=== PATIENT | female | born 1975 | race Caucasian/White ===

== ENCOUNTER → 2020-12-14 08:37 | Outpatient (CLI) | payer OTHER, MEDICAID, SELFPAY ==
[2020-12-14 09:13] LABS: Hematocrit 39.6 % (36-46); Hemoglobin 13.2 g/dL (12.0-16.0); Mean Corpuscular HGB Conc 33.5 % (30-36); Mean Corpuscular Hemoglobin 31.8 PG (26-34); Mean Corpuscular Volume 94.9 fL (80-100); Platelet Count 306 X10^3/uL (150-400); Red Blood Cell Count 4.17 X10^6/uL (4.0-5.2); Red Cell Distribution Width 12.7 % (11.6-14.8)
[2020-12-14 09:26] LABS: Alanine Aminotransferase 26 IU/L (<35); Albumin 4.3 g/dL (3.5-5.0); Albumin Globulin Ratio 1.5 (1.0-2.8); Alkaline Phosphatase 60 U/L (38-126); Aspartate Aminotransferase 62 IU/L (14-36); BUN Creatinine Ratio 23.2 (6-22); Bilirubin Total 0.4 mg/dL (0.2-1.3); Blood Urea Nitrogen 13 mg/dL (7-17); Calcium 8.8 mg/dL (8.4-10.2); Carbon Dioxide 23 mmol/L (22-32); Chloride 107 mmol/L (98-107); Cholesterol 199 mg/dL (140-199); Estimated Glomerular Filt Rate > 60.0 mL/min (>60); Globulin 2.9 g/dL (1.7-4.1); Glucose 95 mg/dL (70-100); HDL Cholesterol 41 mg/dL (40-60); HEMOLYSIS < 15 (0-50); LDL Cholesterol Calculated 142 mg/dL (<100); Sodium 135 mmol/L (137-145); Total Protein 7.2 g/dL (6.3-8.2); Triglycerides 82 mg/dL (35-150)
[2020-12-14 10:24] LABS: TSH w/ Reflex to FT4 1.43 uIU/mL (0.47-4.68)
[2020-12-18 05:10] LABS: Percent Free Testosterone 1.83 % (0.50-2.80); Testosterone Free 0.31 ng/dL (0.10-0.85); Testosterone Total 16.7 ng/dL (.)
== END ==
PROVIDERS: Family Provider Registered Nurse Women's Health Care, Ambulatory; PCP Registered Nurse Diabetes Educator; Referring Provider Registered Nurse Diabetes Educator; Visit Provider Registered Nurse Diabetes Educator
DX: L70.0 Acne vulgaris (principal); D22.9 Melanocytic nevi, unspecified; E66.9 Obesity, unspecified; R53.83 Other fatigue
CPT/HCPCS: 36415; 80053; 80061; 84402; 84403; 84443; 85027

== ENCOUNTER → 2020-12-26 12:24 | Outpatient (CLI) | payer OTHER, MEDICAID, SELFPAY ==
--- NOTE | 2020-12-26 12:27 | DI.RAD.S_ITS ---
PROCEDURE: XR CHEST 2V INDICATIONS: wheeze/sob x 6 months TECHNIQUE: 2 views of the chest were acquired. COMPARISON: None. FINDINGS: Surgical changes and devices: None. Lungs and pleura: Lungs are clear. No pleural effusions or pneumothorax. Mediastinum: Mediastinal contours are normal. Heart size is normal. Bones and chest wall: No suspicious bony abnormalities. Soft tissues appear unremarkable. IMPRESSION: No sign of pneumonia, source of reported wheezing and shortness of breath is not found. Dictated by: Onel Grace M.D. on 12/26/2020 at 13:42 Approved by: Onel Grace M.D. on 12/26/2020 at 13:46
--- NOTE | 2020-12-26 12:30 | DI.MG.S_ITS ---
BILATERAL DIGITAL SCREENING MAMMOGRAM 3D/2D WITH CAD: 12/26/2020 CLINICAL: Baseline exam. Family history of breast cancer. No prior exams were available for comparison. The tissue of both breasts is heterogeneously dense. This may lower the sensitivity of mammography. Current study was also evaluated with a Computer Aided Detection (CAD) system. No significant masses, calcifications, or other findings are seen in either breast. IMPRESSION: NEGATIVE There is no mammographic evidence of malignancy. A 1 year screening mammogram is recommended. This exam was interpreted at Station ID: [id number]. NOTE: For mammograms, a report in lay terms will be sent to the patient. Approximately 15% of breast malignancies will not be visualized mammographically. In the management of a palpable breast mass, a negative mammogram must not discourage biopsy of a clinically suspicious lesion. Electronically Signed By: Noah camara/flako:12/26/2020 16:20:23 letter sent: Normal Exam ACR BI-RADS Category 1: Negative [id number]
== END ==
PROVIDERS: Family Provider Registered Nurse Women's Health Care, Ambulatory; PCP Registered Nurse Diabetes Educator; Referring Provider Registered Nurse Diabetes Educator; Visit Provider Registered Nurse Diabetes Educator
DX: Z12.31 Encounter for screening mammogram for malignant neoplasm of breast (principal); Z80.3 Family history of malignant neoplasm of breast; R06.2 Wheezing; R06.02 Shortness of breath; Z11.51 Encounter for screening for human papillomavirus (HPV); Z12.4 Encounter for screening for malignant neoplasm of cervix
CPT/HCPCS: 71046; 77063; 77067

== ENCOUNTER → 2021-01-03 10:34 | Outpatient (CLI) | payer OTHER, MEDICAID, SELFPAY ==
[2021-01-03 11:18] LABS: COVID19 -Nasal RAPID Negative (Negative)
== END ==
PROVIDERS: Family Provider Registered Nurse Women's Health Care, Ambulatory; PCP Registered Nurse Diabetes Educator; Referring Provider Internal Medicine; Visit Provider Internal Medicine
DX: Z20.822 Contact with and (suspected) exposure to COVID-19 (principal)
CPT/HCPCS: 87635; C9803

== ENCOUNTER → 2021-01-04 08:52 | Outpatient (CLI) | payer OTHER, MEDICAID, SELFPAY ==
--- NOTE | 2021-01-14 11:13 | PM.PFT.1 ---
Pulmonary Function Test Referral & Results Date Patient Seen: 01/04/21 Requesting provider: Doc Beebe Indication: Wheezing Results: The spirometry demonstrates an FVC of 4.20 L which is 104% of predicted. The FEV1 was measured at 3.40 L which is 104% of predicted. The FEV1/FVC ratio was 81 which is 99% of predicted. Following the administration of bronchodilator there was no appreciable change. Lung volumes show an SVC of 4.25 L which is 114% of predicted. The diffusing capacity was measured at 30.38 which is 107% of predicted. The maximum voluntary ventilation was normal Interpretation: This study demonstrates normal pulmonary function
== END ==
PROVIDERS: Family Provider Registered Nurse Women's Health Care, Ambulatory; PCP Registered Nurse Diabetes Educator; Referring Provider Registered Nurse Diabetes Educator; Visit Provider Registered Nurse Diabetes Educator
DX: R06.2 Wheezing (principal); Z87.891 Personal history of nicotine dependence
CPT/HCPCS: 94060; 94726; 94729

== ENCOUNTER → 2021-03-02 07:51 | Outpatient (CLI) | payer OTHER, MEDICAID, SELFPAY ==
[2021-03-02] MEDS: COVID-19 VACC, Ad26(JANSSEN)/PF 0.5 ML IM (07:55)
== END ==
PROVIDERS: Family Provider Registered Nurse Women's Health Care, Ambulatory; PCP Registered Nurse Diabetes Educator; Visit Provider Internal Medicine
DX: Z23 Encounter for immunization (principal)
CPT/HCPCS: 0031A; 91303

== ENCOUNTER → 2021-03-24 08:47 | Outpatient (CLI) | payer OTHER, MEDICAID, SELFPAY ==
[2021-03-24 11:11] LABS: Alanine Aminotransferase 23 IU/L (<35); Albumin 4.2 g/dL (3.5-5.0); Albumin Globulin Ratio 1.4 (1.0-2.8); Alkaline Phosphatase 80 U/L (38-126); Aspartate Aminotransferase 23 IU/L (14-36); Bilirubin Total 0.3 mg/dL (0.2-1.3); Bilirubin Unconjugated 0.4 mg/dL (0.0-1.1); Cholesterol 197 mg/dL (140-199); Globulin 2.9 g/dL (1.7-4.1); HDL Cholesterol 48 mg/dL (40-60); HEMOLYSIS < 15 (0-50); LDL Cholesterol Calculated 134 mg/dL (<100); Total Protein 7.1 g/dL (6.3-8.2); Triglycerides 74 mg/dL (35-150)
== END ==
PROVIDERS: Family Provider Registered Nurse Women's Health Care, Ambulatory; PCP Registered Nurse Diabetes Educator; Referring Provider Registered Nurse Diabetes Educator; Visit Provider Registered Nurse Diabetes Educator
DX: R74.8 Abnormal levels of other serum enzymes (principal); E78.5 Hyperlipidemia, unspecified
CPT/HCPCS: 36415; 80061; 80076

== ENCOUNTER → 2021-07-17 07:20 | Outpatient (CLI) | payer OTHER, MEDICAID, SELFPAY ==
[2021-07-17 08:10] LABS: COVID19 -Nasal RAPID Negative (Negative)
== END ==
PROVIDERS: Family Provider Registered Nurse Women's Health Care, Ambulatory; PCP Registered Nurse Diabetes Educator; Visit Provider Physician Assistant
DX: Z20.822 Contact with and (suspected) exposure to COVID-19 (principal); R09.81 Nasal congestion; R51.9 Headache, unspecified
CPT/HCPCS: 87635

== ENCOUNTER → 2021-09-27 11:31 | Outpatient (CLI) | payer OTHER, MEDICAID, SELFPAY ==
--- NOTE | 2021-09-27 11:38 | DI.RAD.S_ITS ---
PROCEDURE: XR LUMBAR SPINE 2-3V INDICATIONS: HIP PAIN TECHNIQUE: 2 views of the lumbar spine were acquired. COMPARISON: None. FINDINGS: Bones: 5 [id number] vertebrae are present. The sacroiliac joints are patent. There is normal bony alignment. No vertebral body compression fractures. No suspicious bony lesions. Soft tissues: Overlying bowel gas pattern is normal. No suspicious soft tissue calcifications. IMPRESSION: No acute abnormality. Dictated by: Hayden Castro M.D. on 09/27/2021 at 12:01 Approved by: Hayden Castro M.D. on 09/27/2021 at 12:01
--- NOTE | 2021-09-27 11:38 | DI.RAD.S_ITS ---
PROCEDURE: XR CERVICAL SPINE 2V OR 3V INDICATIONS: PAIN TECHNIQUE: 3 view(s) of the cervical spine were acquired. COMPARISON: None. FINDINGS: Bones: No fractures or dislocations to the C7 level. The lateral masses of C1 appear intact on the odontoid view. No suspicious bony lesions. Soft tissues: No prevertebral soft tissue swelling. IMPRESSION: No acute abnormality. Dictated by: Hayden Castro M.D. on 09/27/2021 at 12:00 Approved by: Hayden Castro M.D. on 09/27/2021 at 12:01
--- NOTE | 2021-09-27 11:38 | DI.RAD.S_ITS ---
PROCEDURE: XR HIP W PEL IF DONE RT 2V INDICATIONS: HIP PAIN TECHNIQUE: AP pelvis with lateral view(s) of the right hip(s). COMPARISON: None. FINDINGS: Bones: No fractures or dislocations. Pelvic ring appears intact. No suspicious bony lesions. The sacroiliac joints are patent. No widening of the pubic symphysis. Soft tissues: The visualized bowel gas pattern is normal. No suspicious soft tissue calcifications. IMPRESSION: No acute osseous abnormality. Dictated by: Hayden Castro M.D. on 09/27/2021 at 12:04 Approved by: Hayden Castro M.D. on 09/27/2021 at 12:05
== END ==
PROVIDERS: Family Provider Registered Nurse Women's Health Care, Ambulatory; PCP Registered Nurse Diabetes Educator; Referring Provider Chiropractor; Visit Provider Chiropractor
DX: S13.4XXA Sprain of ligaments of cervical spine, initial encounter (principal); S33.5XXA Sprain of ligaments of lumbar spine, initial encounter; M16.11 Unilateral primary osteoarthritis, right hip
CPT/HCPCS: 72040; 72100; 73502

== ENCOUNTER → 2022-04-05 07:18 | Outpatient (CLI) | payer OTHER, MEDICAID, SELFPAY ==
[2022-04-05 08:14] LABS: Add Manual Diff / Slide Review NO; Basophils Absolute Auto 0 /uL (0-100); Basophils Percent Auto 0.5 % (0-2); Eosinophils Absolute Auto 100 /uL (0-450); Eosinophils Percent Auto 2.8 % (2-4); Hematocrit 40.5 % (36-46); Hemoglobin 13.4 g/dL (12.0-16.0); Lymphocytes Absolute Auto 1400 /uL (1100-4500); Lymphocytes Percent Auto 27.2 % (25-40); Mean Corpuscular Hemoglobin 30.6 PG (26-34); Monocytes Absolute Auto 500 /uL (0-900); Monocytes Percent Auto 9.6 % (3-14); Neutrophils Absolute Auto 3000 /uL (1500-7000); Neutrophils Percent Auto 59.9 % (50-75); Platelet Count 309 X10^3/uL (150-400); Red Blood Cell Count 4.36 X10^6/uL (4.0-5.2); Red Cell Distribution Width 13.4 % (11.6-14.8)
[2022-04-05 08:51] LABS: Alanine Aminotransferase 31 IU/L (<35); Albumin 4.1 g/dL (3.5-5.0); Albumin Globulin Ratio 1.4 (1.0-2.8); Alkaline Phosphatase 77 U/L (38-126); Aspartate Aminotransferase 31 IU/L (14-36); BUN Creatinine Ratio 11.8 (6-22); Bilirubin Total 0.6 mg/dL (0.2-1.3); Blood Urea Nitrogen 8 mg/dL (7-17); Calcium 8.9 mg/dL (8.4-10.2); Carbon Dioxide 27 mmol/L (22-32); Chloride 106 mmol/L (98-107); Cholesterol 159 mg/dL (140-199); Estimated Glomerular Filt Rate > 60 mL/min (>60); Globulin 2.9 g/dL (1.7-4.1); Glucose 91 mg/dL (70-100); HDL Cholesterol 36 mg/dL (40-60); HEMOLYSIS < 15 (0-50); LDL Cholesterol Calculated 106 mg/dL (<100); Sodium 139 mmol/L (137-145); Triglycerides 86 mg/dL (35-150)
[2022-04-05 09:24] LABS: TSH w/ Reflex to FT4 1.73 uIU/mL (0.47-4.68)
== END ==
PROVIDERS: Family Provider Registered Nurse Women's Health Care, Ambulatory; PCP Registered Nurse Diabetes Educator; Referring Provider Registered Nurse Diabetes Educator; Visit Provider Registered Nurse Diabetes Educator
DX: E78.5 Hyperlipidemia, unspecified (principal); J32.1 Chronic frontal sinusitis; J98.8 Other specified respiratory disorders; R19.6 Halitosis; R53.83 Other fatigue
CPT/HCPCS: 36415; 80053; 80061; 84443; 85025

== ENCOUNTER → 2024-01-23 08:10 | Outpatient (CLI) | payer OTHER, MEDICAID, SELFPAY ==
--- NOTE | 2024-01-23 08:12 | DI.MG.S_ITS ---
BILATERAL DIGITAL SCREENING MAMMOGRAM 3D/2D WITH CAD: 01/23/2024 CLINICAL: Routine screening. Family history of breast cancer. Comparison is made to exam dated: 12/26/2020 mammogram - [facility]. Both breasts are heterogeneously dense, which may obscure small masses (category c / 51-75% glandular tissue). Current study was also evaluated with a Computer Aided Detection (CAD) system. There is a focal asymmetry in the right breast at 12 o'clock middle depth. No other significant masses, calcifications, or other findings are seen in either breast. IMPRESSION: INCOMPLETE: NEEDS ADDITIONAL IMAGING EVALUATION The focal asymmetry in the right breast is indeterminate. Additional views with possible ultrasound are recommended. Based on Tyrer-Cuzick model (a risk assessment model), the patient's lifetime risk is 26.5% and her 10 year risk is 5.5%. If a patient has an elevated risk, a more comprehensive evaluation should be considered and/or a referral to a genetic counselor. The [place] [employer], [employer] [employer], and NCCN Guidelines advise the consideration of Breast MRI as an adjunct to screening mammography in patients whose Lifetime risk to develop breast cancer is 20% or higher. This exam was interpreted at Station ID: [id number]. NOTE: For mammograms, a report in lay terms will be sent to the patient. Approximately 15% of breast malignancies will not be visualized mammographically. In the management of a palpable breast mass, a negative mammogram must not discourage biopsy of a clinically suspicious lesion. Electronically Signed By: Noemi vera/flako:01/23/2024 09:39:16 letter sent: Additional Imaging Needed ACR BI-RADS Category 0: Incomplete 3340F
== END ==
PROVIDERS: Family Provider Registered Nurse Women's Health Care, Ambulatory; PCP Registered Nurse Diabetes Educator; Referring Provider Registered Nurse Diabetes Educator; Visit Provider Registered Nurse Diabetes Educator
DX: Z12.31 Encounter for screening mammogram for malignant neoplasm of breast (principal); Z80.3 Family history of malignant neoplasm of breast; R92.333 Mammographic heterogeneous density, bilateral breasts
CPT/HCPCS: 77063; 77067

== ENCOUNTER → 2024-02-16 08:45 | Outpatient (CLI) | payer OTHER, MEDICAID, SELFPAY ==
--- NOTE | 2024-02-16 08:46 | DI.MG.S_ITS ---
UNILATERAL RIGHT DIGITAL DIAGNOSTIC MAMMOGRAM 3D/2D WITH ADDITIONAL VIEWS: 02/16/2024 CLINICAL: Additional evaluation requested from prior study. Comparison is made to exams dated: 01/23/2024 mammogram and 12/26/2020 mammogram - [facility]. The right breast is heterogeneously dense, which may obscure small masses (category c / 51-75% glandular tissue). There is a possible focal asymmetry in the right breast at 12 o'clock middle depth. This is less prominent. No other significant masses or calcifications are seen in the breast. IMPRESSION: INCOMPLETE: NEEDS ADDITIONAL IMAGING EVALUATION The possible focal asymmetry in the right breast resembles fibroglandular tissue and is indeterminate. A targeted ultrasound is recommended and will immediately follow. Based on Tyrer-Cuzick model (a risk assessment model), the patient's lifetime risk is 26.5% and her 10 year risk is 5.5%. If a patient has an elevated risk, a more comprehensive evaluation should be considered and/or a referral to a genetic counselor. The [place] [employer], [employer], and NCCN Guidelines advise the consideration of Breast MRI as an adjunct to screening mammography in patients whose Lifetime risk to develop breast cancer is 20% or higher. This exam was interpreted at Station ID: [id number]. NOTE: For mammograms, a report in lay terms will be sent to the patient. Approximately 15% of breast malignancies will not be visualized mammographically. In the management of a palpable breast mass, a negative mammogram must not discourage biopsy of a clinically suspicious lesion. Electronically Signed By: Mitchell Torres M.D. slc/:02/16/2024 09:13:19 ACR BI-RADS Category 0: Incomplete 3340F
--- NOTE | 2024-02-16 08:47 | DI.US.S_ITS ---
LIMITED ULTRASOUND OF RIGHT BREAST: 02/16/2024 Comparison is made to exams dated: 02/16/2024 mammogram, 01/23/2024 mammogram, and 12/26/2020 mammogram - [facility]. Color flow and real-time ultrasound of the right breast 12 o'clock region were performed. Jeffers scale images of the real-time examination were reviewed. No significant abnormalities were seen sonographically in the right breast. IMPRESSION: NEGATIVE There is no sonographic evidence of malignancy. A 1 year screening mammogram is recommended. Exam findings were conveyed to the patient. This exam was interpreted at Station ID: [id number]. Electronically Signed By: Mitchell Torres M.D. slc/:02/16/2024 09:22:33 letter sent: Normal Exam Ultrasound BI-RADS: 1 Negative
== END ==
PROVIDERS: Family Provider Registered Nurse Women's Health Care, Ambulatory; PCP Registered Nurse Diabetes Educator; Referring Provider Registered Nurse Diabetes Educator; Visit Provider Registered Nurse Diabetes Educator
DX: R92.8 Other abnormal and inconclusive findings on diagnostic imaging of breast (principal); R92.331 Mammographic heterogeneous density, right breast
CPT/HCPCS: 76642; 77065; G0279

== ENCOUNTER 2024-05-04 09:48 | Day surgery (SDC) | payer OTHER, MEDICAID, SELFPAY ==
[2024-05-04 11:25] VITALS: BP 116/73; PULSE 50; RESP 16; TEMP 36.3; O2SAT 99
[2024-05-04] MEDS: LACTATED RINGERS 1,000 ML 42 ML IV (11:30)
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
--- NOTE | 2024-05-04 12:25 | P.OP.COLON_ITS ---
Operative Date/Time/Diagnoses Date of procedure: 05/04/24 Time of procedure: 12:25 Pre-op diagnosis: Colorectal screening Procedure & Clinicians Study performed: Screening colonoscopy Same procedure as scheduled: Yes Indications: Colorectal screening Family history of colon cancer first-degree relative Surgeon: Rohan Carpenter Procedure Notes Procedure in detail: The history and physical was performed/updated and the patient is ASA class is 2. The procedure was discussed in detail with the patient. Potential risks complications including infection, bleeding, missed diagnosis, perforation, need for surgery, and were explained. Their questions were answered and informed consent was obtained. Patient was brought to the procedure room and placed standard monitoring equipment. The patient's vital signs were monitored continuously throughout the entire procedure. Prior to starting time-out was performed. The patient was placed in the left lateral recumbent position. Procedural sedation was administered by anesthesia. Examination began with a thorough inspection of the perianal area there was no evidence of fissures, fistulae, external hemorrhoids or cutaneous malignancy. The colonoscopy scope was then placed into the anal canal and was advanced to the cecum, which was identified by the ileocecal valve, the appendiceal orifice and the confluence of the taenia. The scope was then slowly withdrawn examining colon thoroughly in all directions, irrigating it of any residual stool. The scope was retroflexed within the rectum The patient tolerated the procedure well. They will be discharged once criteria are met. The prep was of good/excellent quality. The withdrawl time was 6 minutes. FINDINGS * Unremarkable colonoscopy. No masses polyps or inflammation. Specimen(s): none sent Impression: Normal colonoscopy Post-procedure Recommendations: Colonoscopy in 5 years (Father history of colon cancer) Disposition: same day surgery
[2024-05-04 12:44] VITALS: BP 115/69; PULSE 60; RESP 15; TEMP 36.3; O2SAT 99
== END 2024-05-04 12:49 | disposition home or self-care (01) ==
PROVIDERS: Family Provider Registered Nurse Women's Health Care, Ambulatory; PCP Registered Nurse Diabetes Educator; Referring Provider Surgery; Visit Provider Surgery
PROC: 0DJD8ZZ Inspection of Lower Intestinal Tract, Via Natural or Artificial Opening Endoscopic (ICD-10-PCS; CPT 45378; principal; 2024-05-04 11:15)
DX: Z12.11 Encounter for screening for malignant neoplasm of colon (principal); Z80.0 Family history of malignant neoplasm of digestive organs
CPT/HCPCS: 45378; J2704

== ENCOUNTER → 2024-05-17 09:19 | Outpatient (CLI) | payer OTHER, MEDICAID, SELFPAY ==
[2024-05-17 11:14] LABS: HEMOLYSIS 21 (0-50); Iron 131 ug/dL (37-170)
[2024-05-17 11:15] LABS: Alanine Aminotransferase 18 IU/L (<35); Albumin 4.1 g/dL (3.5-5.0); Albumin Globulin Ratio 1.5 (1.0-2.8); Alkaline Phosphatase 73 U/L (38-126); Aspartate Aminotransferase 24 IU/L (14-36); BUN Creatinine Ratio 23.5 (6-22); Bilirubin Total 0.6 mg/dL (0.2-1.3); Blood Urea Nitrogen 12 mg/dL (7-17); Calcium 8.9 mg/dL (8.4-10.2); Carbon Dioxide 26 mmol/L (22-32); Chloride 108 mmol/L (98-107); Cholesterol 183 mg/dL (140-199); Estimated Glomerular Filt Rate > 60 mL/min (>60); Globulin 2.7 g/dL (1.7-4.1); Glucose 79 mg/dL (70-100); HDL Cholesterol 64 mg/dL (40-60); HEMOLYSIS < 15 (0-50); LDL Cholesterol Calculated 102 mg/dL (<100); Potassium 4.6 mmol/L (3.4-5.1); Sodium 138 mmol/L (137-145); Total Protein 6.8 g/dL (6.3-8.2); Triglycerides 84 mg/dL (35-150); Uric Acid 3.7 mg/dL (2.5-6.2)
[2024-05-17 11:27] LABS: Percent Iron Saturation 38 % (15-50); Total Iron Binding Capacity 349 ug/dL (265-497); Transferrin 271 mg/dL (206-381)
[2024-05-17 11:38] LABS: Vitamin D 25 Hydroxy (D3) 48.9 ng/mL (30.0-100.0)
[2024-05-17 11:46] LABS: TSH w/ Reflex to FT4 0.81 uIU/mL (0.47-4.68)
[2024-05-17 11:54] LABS: Ferritin 22 ng/mL (6-137)
[2024-05-17 12:26] LABS: Folate 17.7 ng/mL (2.76-20.0); Vitamin B12 956 pg/mL (239-931)
== END ==
PROVIDERS: Family Provider Registered Nurse Women's Health Care, Ambulatory; PCP Registered Nurse Diabetes Educator; Referring Provider Physician Assistant; Visit Provider Physician Assistant
DX: E78.5 Hyperlipidemia, unspecified (principal); G47.00 Insomnia, unspecified; C43.9 Malignant melanoma of skin, unspecified; C80.1 Malignant (primary) neoplasm, unspecified; Z90.3 Acquired absence of stomach [part of]
CPT/HCPCS: 36415; 80053; 80061; 82306; 82607; 82728; 82746; 83540; 83550; 84443; 84550

== ENCOUNTER → 2024-06-07 11:31 | Outpatient (CLI) | payer SELFPAY ==
[2024-06-07 12:39] LABS: Add Manual Diff / Slide Review NO; Basophils Absolute Auto 0 /uL (0-100); Basophils Percent Auto 0.6 % (0-2); Eosinophils Absolute Auto 0 /uL (0-450); Eosinophils Percent Auto 0.9 % (2-4); Hematocrit 39.6 % (36-46); Hemoglobin 13.3 g/dL (12.0-16.0); Lymphocytes Absolute Auto 1200 /uL (1100-4500); Mean Corpuscular HGB Conc 33.6 % (30-36); Mean Corpuscular Volume 95.3 fL (80-100); Monocytes Absolute Auto 400 /uL (0-900); Monocytes Percent Auto 7.6 % (3-14); Neutrophils Absolute Auto 3400 /uL (1500-7000); Neutrophils Percent Auto 67.9 % (50-75); Platelet Count 315 X10^3/uL (150-400); Red Blood Cell Count 4.16 X10^6/uL (4.0-5.2); Red Cell Distribution Width 13.2 % (11.6-14.8)
[2024-06-09 02:40] LABS: Zinc 76 ug/dL (44-115)
== END ==
PROVIDERS: Physician Assistant; Family Provider Registered Nurse Women's Health Care, Ambulatory; PCP Registered Nurse Diabetes Educator; Referring Provider Registered Nurse Diabetes Educator; Visit Provider Registered Nurse Diabetes Educator
DX: Z90.3 Acquired absence of stomach [part of] (principal); C43.9 Malignant melanoma of skin, unspecified; C80.1 Malignant (primary) neoplasm, unspecified; E78.5 Hyperlipidemia, unspecified
CPT/HCPCS: 36415; 82525; 83036; 83735; 84207; 84255; 84425; 84590; 84630; 85025

== ENCOUNTER → 2025-01-11 12:54 | Outpatient (CLI) | payer BC, SELFPAY ==
--- NOTE | 2025-01-11 12:57 | DI.MRI.S_ITS ---
BREAST MRI OF BOTH BREASTS: 01/11/2025 CLINICAL: High risk for breast cancer. PROCEDURE: MR BREAST BI WO/W CON INDICATIONS: HIGH RISK FOR BREAST CANCER TECHNIQUE: The patient was placed prone in a dedicated breast imaging coil. Precontrast axial STIR and 3D FLASH without fat saturation sequences were obtained. Both before and after bolus injection of contrast, sequential 1-minute axial 3D FLASH with fat saturation sequences for 3 time points, with subtraction images and maximum intensity projections (MIP's) generated. Delayed sagittal FLASH images with fat saturation were also obtained. CONTRAST: 20 cc ProHance IV contrast. Computer-aided detection, including computer algorithm analysis of MRI image data for lesion detection and characterization, pharmacokinetic analysis, with further physician review for interpretation, was performed. COMPARISON: [facility], , US BREAST RT LIMITED, 02/16/2024, 9:17. [facility], , SPECIAL VIEW RT, 02/16/2024, 9:02. [facility], MM SCREENING MAMMO BI, 01/23/2024, 8:45. [facility], MM SCREENING MAMMO BI, 12/26/2020, 12:41. FINDINGS: Image quality: Excellent. There is mild background parenchymal enhancement. Right breast: No mass or suspicious enhancement. Multiple small benign cysts. Left breast: No mass or suspicious enhancement. Multiple small benign cysts. Miscellaneous: No enlarged lymph nodes. The ascending aorta appears prominent measuring approximately 3.8 cm. IMPRESSION: BENIGN No mass or suspicious enhancement. Multiple small benign cysts bilaterally. No enlarged lymph nodes. The ascending aorta appears ectatic. This can be further evaluated with CTA chest. BIRADS 2 A 1 year screening mammogram is recommended. 01/23/2025 Recommend continued screening breast MRI. COMMENT: The imaging literature indicates that a negative contrast breast MRI examination has a high sensitivity and a moderate specificity for detecting and excluding invasive carcinomas to a detection threshold of 3-5 mm; nonetheless, appropriate clinical and mammographic follow-up are recommended. MRI is not sensitive for detecting DCIS (ductal carcinoma in situ) and may not detect large invasive neoplasms that show only minimal enhancement such as mucinous carcinoma. If there are suspicious calcifications or clinically worrisome palpable masses, then biopsy should still be considered. Invasive neoplasms can be hidden by co-existent and benign enhancement caused by mastitis, hormone therapy effects, radiation therapy, , and recent biopsy or surgery. False positive examinations can occur in a number of circumstances, including breasts that have recently been subject to invasive procedures and those that contain atypical ductal hyperplasia, hormonally stimulated glandular tissue, fat necrosis, or radial scars. Dictated by: Mitchell Torres M.D. on 01/11/2025 at 20:32 This exam was interpreted at Station ID: [id number]. Electronically Signed By: Mitchell Torres M.D. slc/:01/11/2025 21:02:33 letter sent: Normal Exam ACR BI-RADS Category 2: Benign
== END ==
LOC: MRI 12:56
PROVIDERS: Family Provider Registered Nurse Women's Health Care, Ambulatory; PCP Registered Nurse Diabetes Educator; Referring Provider Registered Nurse Diabetes Educator; Visit Provider Registered Nurse Diabetes Educator
DX: N60.01 Solitary cyst of right breast (principal); N60.02 Solitary cyst of left breast; Z91.89 Other specified personal risk factors, not elsewhere classified; Z80.3 Family history of malignant neoplasm of breast
CPT/HCPCS: 77049; A9579

== ENCOUNTER → 2025-01-24 11:48 | Outpatient (CLI) | payer BC, SELFPAY ==
--- NOTE | 2025-01-24 11:49 | DI.CT.S_ITS ---
PROCEDURE: CT ANGIO CHEST INDICATIONS: further eval of aortic ectasia seen on breast MRI TECHNIQUE: After the administration of intravenous contrast, 2.5 mm thick sections acquired from the lung apices to the posterior lung bases. Maximum intensity projection (MIP) oblique sagittal reformats were then acquired parallel to the aortic arch. For radiation dose reduction, the following was used: automated exposure control. COMPARISON: None. FINDINGS: Image quality: Excellent. Aorta: Aorta and great vessels are normal in size. No mural irregularity or contrast extravasation to suggest aortic injury. Lower Neck: No enlarged lymph nodes. Thyroid: No thyroid nodules which require sonographic follow up, per consensus guidelines. Axillae: No enlarged lymph nodes. Chest Wall: Unremarkable. Bones: Unremarkable. Lungs and Pleura: No pneumothorax or pleural effusions. 4 mm solid nodule, right lower lobe (series 5, image 170). Heart: Heart size is normal. No pericardial effusion. Thoracic Vessels: Pulmonary arteries demonstrate normal size. Mediastinum and Sveta: No enlarged lymph nodes. Esophagus: No wall thickening. No hiatal hernia. Upper Abdomen: Visualized upper abdomen solid organs and bowel loops appear normal. IMPRESSION: Normal size of the aorta. 4 mm right lower lobe nodule. Consider 12 month follow-up if at high risk for developing lung cancer, per Fleischner Society guidelines. Dictated by: Yomi Padilla M.D. on 01/24/2025 at 15:18 Approved by: Yomi Padilla M.D. on 01/24/2025 at 15:22
== END ==
PROVIDERS: Family Provider Registered Nurse Women's Health Care, Ambulatory; PCP Registered Nurse Diabetes Educator; Referring Provider Registered Nurse Diabetes Educator; Visit Provider Registered Nurse Diabetes Educator
DX: I77.819 Aortic ectasia, unspecified site (principal); R91.1 Solitary pulmonary nodule
CPT/HCPCS: 71275; Q9967

== ENCOUNTER → 2025-04-25 10:59 | Outpatient (CLI) | payer BC, SELFPAY ==
[2025-04-25 11:51] LABS: Alanine Aminotransferase 24 IU/L (<35); Albumin 4.1 g/dL (3.5-5.0); Albumin Globulin Ratio 1.6 (1.0-2.8); Alkaline Phosphatase 83 U/L (38-126); Aspartate Aminotransferase 23 IU/L (14-36); Bilirubin Total 0.5 mg/dL (0.2-1.3); Bilirubin Unconjugated 0.2 mg/dL (0.0-1.1); Globulin 2.5 g/dL (1.7-4.1); HEMOLYSIS < 15 (0-50); Total Protein 6.6 g/dL (6.3-8.2)
== END ==
PROVIDERS: Family Provider Registered Nurse Women's Health Care, Ambulatory; PCP Registered Nurse Diabetes Educator; Referring Provider Registered Nurse Diabetes Educator; Visit Provider Registered Nurse Diabetes Educator
DX: B35.1 Tinea unguium (principal); Q87.89 Other specified congenital malformation syndromes, not elsewhere classified; Z51.81 Encounter for therapeutic drug level monitoring
CPT/HCPCS: 36415; 80076

== ENCOUNTER → 2025-08-20 10:50 | Outpatient (CLI) | payer BC, SELFPAY ==
[2025-08-20 11:40] LABS: Add Manual Diff / Slide Review NO; Hematocrit 38.1 % (36-46); Hemoglobin 12.7 g/dL (12.0-16.0); Lymphocytes Absolute Auto 1200 /uL (1100-4500); Mean Corpuscular HGB Conc 33.4 % (30-36); Mean Corpuscular Hemoglobin 30.8 PG (26-34); Mean Corpuscular Volume 92.3 fL (80-100); Platelet Count 294 X10^3/uL (150-400)
[2025-08-20 12:13] LABS: HEMOLYSIS < 15 (0-50); Iron 147 ug/dL (37-170)
[2025-08-20 12:15] LABS: Alanine Aminotransferase 19 IU/L (<35); Albumin 4.3 g/dL (3.5-5.0); Albumin Globulin Ratio 1.7 (1.0-2.8); Alkaline Phosphatase 70 U/L (38-126); Blood Urea Nitrogen 13 mg/dL (7-17); Calcium 9.1 mg/dL (8.4-10.2); Carbon Dioxide 24 mmol/L (22-32); Chloride 104 mmol/L (98-107); Cholesterol 180 mg/dL (140-199); Estimated Glomerular Filt Rate > 60 mL/min (>60); Globulin 2.6 g/dL (1.7-4.1); Glucose 85 mg/dL (70-99); HDL Cholesterol 87 mg/dL (40-60); HEMOLYSIS < 15 (0-50); Magnesium 2.1 mg/dL (1.6-2.3); Potassium 4.7 mmol/L (3.4-5.1); Sodium 135 mmol/L (137-145); Total Protein 6.9 g/dL (6.3-8.2); Triglycerides 61 mg/dL (35-150)
[2025-08-20 12:23] LABS: Follicle Stimulating Hormone 2.28 mIU/mL; Percent Iron Saturation 36 % (15-50); Total Iron Binding Capacity 413 ug/dL (265-497); Transferrin 353 mg/dL (206-381); Vitamin D 25 Hydroxy (D3) 57.8 ng/mL (30.0-100.0)
[2025-08-20 12:33] LABS: Free T4, Direct Thyroxine 1.05 ng/dL (0.78-2.19)
[2025-08-20 12:39] LABS: Estradiol, Total 193.9 pg/mL
[2025-08-20 12:46] LABS: Thyroid Stimulating Hormone 0.917 uIU/mL (0.47-4.68)
[2025-08-20 12:49] LABS: Ferritin 10 ng/mL (6-137)
[2025-08-20 13:23] LABS: Folate 9.1 ng/mL (2.76-20.0); Vitamin B12 479 pg/mL (239-931)
[2025-08-22 18:36] LABS: Interpretation Negative (Negative)
== END ==
PROVIDERS: PCP Registered Nurse Diabetes Educator; Referring Provider Registered Nurse Diabetes Educator; Visit Provider Registered Nurse Diabetes Educator
DX: E78.5 Hyperlipidemia, unspecified (principal); Z90.3 Acquired absence of stomach [part of]; Z98.84 Bariatric surgery status; F32.1 Major depressive disorder, single episode, moderate; N95.1 Menopausal and female climacteric states; Z51.81 Encounter for therapeutic drug level monitoring; B35.1 Tinea unguium; R68.82 Decreased libido; N91.5 Oligomenorrhea, unspecified; R19.6 Halitosis; R14.2 Eructation; R53.83 Other fatigue
CPT/HCPCS: 36415; 80053; 80061; 82306; 82525; 82607; 82670; 82728; 82746; 83001; 83013; 83498; 83540; 83550; 83735; 84207; 84403; 84425; 84439; 84443; 84590; 84630; 85025